=== PATIENT | female | born 1995 ===

== ENCOUNTER 2023-02-22 09:31 | Emergency (ER) | payer OTHER ==
[~2023-02-22] VITALS: Ht 154.9 cm; Wt 59.4 kg
== END 2023-02-22 13:42 | disposition home or self-care (01) ==
LOC: ER 09:31
DX: O26.899 Other specified pregnancy related conditions, unspecified trimester (principal)

== ENCOUNTER → 2023-08-29 | Outpatient (CLI) | payer OTHER | END | disposition home or self-care (01) | LOC: PRENATAL 14:18 | PROVIDERS: ATTEND Obstetrics & Gynecology Maternal & Fetal Medicine | DX: O35.3XX0 Maternal care for (suspected) damage to fetus from viral disease in mother, not applicable or unspecified (principal); O44.00 Complete placenta previa NOS or without hemorrhage, unspecified trimester; O28.3 Abnormal ultrasonic finding on antenatal screening of mother; Z3A.31 31 weeks gestation of pregnancy ==

== ENCOUNTER → 2023-09-25 13:08 | Outpatient (CLI) | payer OTHER | END | disposition home or self-care (01) | LOC: PRENATAL 13:08 | PROVIDERS: ATTEND Obstetrics & Gynecology Maternal & Fetal Medicine | DX: O26.849 Uterine size-date discrepancy, unspecified trimester (principal); O36.8199 Decreased fetal movements, unspecified trimester, other fetus; O28.3 Abnormal ultrasonic finding on antenatal screening of mother; Z3A.35 35 weeks gestation of pregnancy ==